=== PATIENT | female | born 1930 | race Caucasian/White ===

== ENCOUNTER → 2018-03-05 | Outpatient (CLI) | payer MEDICARE, OTHER ==
[~2018-03-05] MED LIST: ACETAMINOPHEN W1 TA6 PO; ATARAX25 MG PO; BENADRYL25 M1 PO; CALTRATE-600 W600 MG PO; CELEBREX PO; CENTRUM SILVER1 TA1 PO; COUMADIN4 MG PO; DECADRON 4MG TAB4 MG PO; FLAGYL500 MG PO; HYDROCODONE/APAP PO; LEVAQUIN 5500 MG/TA1 PO; MVI; TAMOXIFEN CITRA20 MG PO; VIACTIV PO
== END ==
LOC: COL.RAD 10:25
DX: N26.1 Atrophy of kidney (terminal) (principal); R10.11 Right upper quadrant pain